=== PATIENT | male | born 1995 | race Caucasian/White ===

== ENCOUNTER 2020-03-15 17:25 | Emergency (ER) | payer BC, SELFPAY ==
[2020-03-15 17:40] VITALS: BP 150/76; PULSE 105; RESP 20; TEMP 36.6; O2SAT 99
--- NOTE | 2020-03-15 17:43 | ED.GENADULT ---
HPI - General Adult General Chief complaint: Skin/Abscess/Foreign Body Stated complaint: Skin/Foreign Abcess Time Seen by Provider: 03/15/20 17:43 Source: patient Mode of arrival: ambulatory Limitations: no limitations History of Present Illness HPI narrative: 24-year-old male patient presents to the [facility] with complaints of wound to the left side of the neck for the past week. Patient states it started off as a small pimple and has gotten increasingly bigger, tender and feels like there is a lot of pressure to it. Patient denies any fevers, body aches or chills that he is aware of. Patient states he did try to pop it and squeeze it however it has gotten worse. Related Data Allergies Allergy/AdvReac Type Severity Reaction Status Date / Time amoxicillin Allergy Unknown Unknown Verified 03/15/20 17:56 Review of Systems Review of Systems: Narrative: CONSTITUTIONAL: Denies fever, chills, or sweats. EYES: Denies visual changes, redness, or discharge. ENT: Denies rhinorrhea, congestion, sore throat, or otalgia. CARDIOVASCULAR: Denies chest pain, palpitations, or edema. RESPIRATORY: Denies cough or dyspnea. GASTROINTESTINAL: Denies abdominal pain, nausea, vomiting, or diarrhea. GENITOURINARY: Denies dysuria or hematuria. SKIN: Denies rash or itching. Positive wound to left side of neck x1 week MUSCULOSKELETAL: Denies back pain, joint pain, or myalgia. NEUROLOGIC: Denies headache, numbness, or weakness. PSYCHIATRIC: Denies anxiety or depression. PMFSH Comments At the time of my signature I agree with nursing past medical history, surgical, social, and family history. There is no relevant family history pertinent to the presenting complaint. Exam Narrative: Exam Narrative: GENERAL: Well-appearing, well-nourished, and in no acute distress. HEAD: Normocephalic, atraumatic. EYES: PERRLA and EOMI. ENT: Nares clear, no rhinorrhea or epistaxis. Mucous membranes moist. NECK: Supple. No lymphadenopathy CHEST: Clear to auscultation. No respiratory distress. HEART: Regular rate and rhythm. No murmur heard. Normal peripheral pulses. ABDOMEN: Soft, nontender, nondistended, normal active bowel sounds. EXTREMITIES: Normal range of motion. No edema. SKIN: Warm, dry, no rash. Patient has a 4 cm x 3 cm raised abscess to the lateral left side of the neck. There does appear to be a center pimple-like area. No active drainage at this time. Is very sensitive to the touch and with some erythema but no warmth noted. NEURO: No focal deficits. Alert and oriented x3. Course Vital Signs Vital signs: Vital Signs Temperature 36.6 C 03/15/20 17:40 Pulse Rate 105 H 03/15/20 17:40 Respiratory Rate 20 03/15/20 17:40 Blood Pressure 150/76 H 03/15/20 17:40 Pulse Oximetry 99 03/15/20 17:40 Temperature 36.6 C 03/15/20 17:52 Pulse Rate 105 H 03/15/20 17:52 Respiratory Rate 20 03/15/20 17:52 Blood Pressure 150/76 H 03/15/20 17:52 Pulse Oximetry 99 03/15/20 17:52 Vital signs reviewed. Procedures Abscess I/D neck: Date of Incision: 03/15/20 Time of Incision: 17:55 Side (if applicable): left Sedation/analgesia: none Local Anesthetic: lidocaine 1% Amount of anesthesia used (mL): 2 Technique: incised with #11 blade Irrigation: Yes Packing used?: iodoform I&D Results: Pus and Blood Abcess I&D Additional Comments: The procedure was explained and verbal consent is obtained. The wound was anesthetized with 2ml of 1% lidocaine with good anesthesia. Sterile drape and prep are done. The fluctuant center was incised with #11 blade scalpel. A moderate amount of excudate/blood was expressed or removed. The wound was probed for loculated area and irrigated with normal saline. Wound was packed with iodoform. Dressing was applied. The patient tolerated the procedure well. Medical Decision Making Differential Diagnosis Differential Diagnosis: Differential diagnosis: Absc
[2020-03-15 17:52] VITALS: BP 150/76; PULSE 105; RESP 20; TEMP 36.6; O2SAT 99
== END 2020-03-15 18:05 | disposition home or self-care (01) ==
PROVIDERS: Emergency Provider Nurse Practitioner Family
DX: L02.11 Cutaneous abscess of neck (principal)
CPT/HCPCS: 10061; 87070; 87205; 99203; G0463

== ENCOUNTER 2025-02-13 17:54 | Emergency (ER) | payer OTHER, SELFPAY ==
--- OUTSIDE RECORDS SUMMARY | 2025-02-13 17:55 | XMS_ITS | Clinical Summary ---
Author Organization [facility] Address [address] [place] [address] Phone Care Team Providers Care Agricultural Sales Representative Name Role Phone Provider, None Primary Care Provider Unavailabl e Allergies Active Allergy Reactions Criticality Noted Date Comments Amoxicillin Unknown 02/04/2024 Medications No known medications Social History Tobacco Use Types Packs/Day Years Used Date Smoking Tobacco: Never Smokeless Tobacco: Never Tobacco Cessation:Counseling Given: Not Answered Sex and Gender Information Value Date Recorded Sex Assigned at Not on file Legal Sex Male 11:09 PM CDT Gender Identity Not on file Sexual Orientation Not on file Last Filed Vital Signs Vital Sign Reading Time Taken Comments Blood Pressure 137/77 02/04/2024 8:58 PM CDT Pulse 102 02/04/2024 8:58 PM CDT Temperature 37.4 C (99.3 F) 02/04/2024 8:58 PM CDT Respiratory Rate 17 02/04/2024 8:58 PM CDT Oxygen Saturation 100% 02/04/2024 8:58 PM CDT Inhaled Oxygen Concentration - - Weight 76.2 kg (167 lb 15.9 oz) 02/04/2024 8:58 PM CDT Height 172.7 cm (5' 8) 02/04/2024 8:58 PM CDT Body Mass Index 25.54 02/04/2024 8:58 PM CDT Plan of Treatment Not on file Insurance MEDICAID [place] Care Teams Agricultural Sales Representative Relationship Specialty Start Date End Date Provider, None [place] PCP - General 02/04/24
--- OUTSIDE RECORDS SUMMARY | 2025-02-13 17:55 | XMS_ITS | Clinical Summary ---
Author Organization [facility] Address [address] [place] [address] Care Team Providers Care Mercury Washer Name Role Phone Anuel Quinn MD Primary Care Provi barbra Allergies Active Allergy Reactions Criticality Noted Date Comments Amoxicillin Other (See comments) Low Childhood allergy per pt, unsure of reaction Medications albuterol HFA (PROVENTIL HFA,VENTOLIN HFA,PROAIR HFA) 90 mcg/actuation inhalerIndicati ons:Wheezing Inhale 2 puffs every 6 (six) hours as needed for wheezing 3 each 4 04/20/2023 Active ARIPiprazole (ABILIFY) 10 mg tabletIndicatio ns:Bipolar affective disorder, currently depressed, moderate (HCC) Take 1 tablet (10 mg total) by mouth daily 30 tablet 1 09/07/2024 Active Active Problems Problem Noted Date Diagnosed Date Bipolar affective disorder, currently depressed, moderate 06/29/2024 Assessment & Plan (09/07/2024 5:01 PM CDT): Orders: ARIPiprazole (ABILIFY) 10 mg tablet; Take 1 tablet (10 mg total) by mouth daily Ambulatory referral to Psychology; Future Auditory hallucinations 06/29/2024 Hypoglycemia 06/29/2024 Dysphoric mood 04/20/2023 Assessment & Plan (04/20/2023 10:38 AM SPOUT WORKER): Patient has complex stressful financial, legal and family issues, declines thoughts of self-harm. Has been on zoloft in the past but did not like how he felt. Has tried counseling in the past and is interested in starting again. Provided list of counseling services. Instructed to call back if doesn't find good fit. He is not interested in psychiatry referral at this time. Overall, coping well. Instructed to call if further concerns. Food pantry list provided for additional resources Encounter for PPD skin test reading 06/15/2021 Immunizations Immunization Administration Dates Next Due DTaP 11/30/2001, 9,05/31/1998,03/29,01/25/1998 HPV, Quadrivalent 08/25/2014,10/06/2012 HPV9 11/28/2015 Hep A, Ped Unspecified 05/15/2007,11/27/2006 Hep B / HiB 05/31/1998 Hep B, Unspecified 1997,1997 HiB 02/28/1999,03/29/1998,01/25/1998 IPV 11/30/2001, 9,03/29/1998,01/25 Influenza LAIV (Nasal) 02/22/2011 Influenza, Live, Trivalent, Intranasal 1 Influenza, Quadrivalent, Spl it, Preservative Free, Intramuscular 04/20/2023 Influenza, Unspecified 01/21/2024(Deferr ed: Patient Refused),04/20/2023,01/19/2023(Deferre d: Patient Refused) MMR 11/30/2001,1998 Meningococcal ACWY, Unspecified 11/14/2009 Meningococcal Conjugate (Menveo) 08/25/2014 PPD TEST 06/12/2021 Pneumococcal Conjugate 7-Valent 02/26/2001 Tdap 11/12/2018,01/09/2009 Varicella 11/30/2007,1998 Surgical History Surgery Date Site/Laterality Comments TONSILLECTOMY Bilateral Medical History Medical History Date Comments No pertinent past medical history Family History Medical History Relation Name Comments Liver disease Maternal Grandmother liver varices Maternal Grandmother Diabetes Mother Colon cancer Other Paternal aunt Uterine cancer Other Paternal aunt pulmonary hypertension Other Paternal aunt Diabetes Paternal Grandmother Heart disease Paternal Grandmother pacemaker Paternal Grandmother Relation Name Status Comments Maternal Grandmother Mother Other Paternal aunt Paternal Grandmother Social History Tobacco Use Types Packs/Day Years Used Date Smoking Tobacco: Every Day Cigarettes 1 1.8 Started: 2023; Last attempted to quit: 12/28/2022 Vaping Smokeless Tobacco: Never AUDIT-C Answer Date Recorded Q1: How often do you have a drink containing alcohol? Never 04/20/2023 Q2: How many drinks containi ng alcohol do you have on a typical day when you are drinking? Patient does not drink Q3: How often do you have si x or more drinks on one occasion? Never 04/20/2023 PHQ-2 Answer Date Recorded PHQ-2 Total Score (If total score is 3 or more points, staff should administer the PHQ-9) 0 06/29/2024 Personal Safety Answer Date Recorded Have you ever been in or are you currently in a harmful physical or emotional relationship or is someone making you feel afraid or unsafe? Denies 06/28/2024 Sex and Gender Information Value Date Recorded Sex Assigned at Not on file Legal Sex Male 3:25 AM SPOUT WORKER Gender Identity Not on file Sexual Orientation Not on file Last Filed Vital Signs Vital Sign Reading Time Taken Comments Blood Pressure 108/58 09/07/2024 4:23 PM CDT Pulse 92 09/07/2024 4:23 PM CDT Temperature 36.8 C (98.2 F) 09/07/2024 4:23 PM CDT Respiratory Rate 18 06/28/2024 4:46 PM CDT Oxygen Saturation 98% 09/07/2024 4:23 PM CDT Inhaled Oxygen Concentration - - Weight 79.2 kg (174 lb 8 oz) 09/07/2024 4:23 PM CDT Height 172.7 cm (5' 7.99) 09/07/2024 4:23 PM CD T Body Mass Index 26.54 09/07/2024 4:23 PM CDT Plan of Treatment Health Maintenance Due Date Last Done Comments Hepatitis C Screening 1997 Pneumococcal vaccine <65 (2 of 2 - PPSV23, PCV20, or PCV21) 11/30/2003 02/26/2001 Regular Well Visit/Exam 18-64 11/30/2015 Influenza Vaccine (#1) 2024 , 04/20/2023, 02/22/2011, Additional history exists Depression Screening 06/29/2025 06/29/2024, 04/20/19 24 DTaP/Tdap/Td Vaccine (8 - Td or Tdap) 11/12/2028 11/12/2018, 01/09/2009, 11/30/2001, Additional history exists Hepatitis B Screening Completed 05/31/1998 , 1997, 1997 Varicella Vaccines Completed 11/30/2007, 1998 HPV Vaccines Completed 11/28/2015, 08/11, 10/06/2012 Covid-19 Vaccine Completed 12/12/2023, , 01/15/2021, Additional history exists Insurance [facility] H[facility]/PPO Address: [facility] [id number] [place] [id number] [facility] [address] [place] [address] Care Teams Mercury Washer Relationship Specialty Start Date End Date Anuel Quinn MD [address] [facility] [address] [place] [address] PCP - General Family Practice 06/29/24
[2025-02-13 17:58] VITALS: BP 124/68; PULSE 77; RESP 18; TEMP 37.2; O2SAT 100
--- NOTE | 2025-02-13 18:35 | ED_ITS ---
HPI - Ear Problem General Chief complaint: Ear Stated complaint: cotton stuck in L ear Time Seen by Provider: 02/13/25 18:35 Source: patient, RN notes reviewed and old records reviewed Mode of arrival: ambulatory Limitations: no limitations History of Present Illness HPI Narrative: 29-year-old male presents to the [facility] with cotton stuck in his left ear. Lost a Q-tip just prior to arrival. Related Data Allergies Allergy/AdvReac Type Severity Reaction Status Date / Time amoxicillin Allergy Unknown Unknown Verified 02/13/25 18:07 Review of Systems Review of Systems: All systems reviewed & are unremarkable except as noted in HPI and below Constitutional: Constitutional: Reports no additional constitutional complaints ENT: Reports as per HPI Cardiovascular: Cardiovascular: Reports no additional cardiovascular complaints, Denies chest pain and Denies dyspnea Respiratory: Respiratory: Reports no additional respiratory complaints, Denies chest congestion, Denies cough and Denies dyspnea Musculoskeletal: Musculoskeletal: Reports no additional musculoskeletal complaints Integumentary/Breasts: Skin/Breast: Reports system reviewed and no additional complaints, except as docu PMFSH Comments At the time of my signature, I reviewed and agree with the nursing past medical, surgical, social, and family history. There is no relevant family history pertinent to the patient complaint. Exam Const: General: cooperative, healthy appearing, comfortable, no acute distress, well developed, alert and well nourished Nutritional Appearance: well nourished Orientation/consciousness: patient oriented x3 Limitations: no limitations HENMT: Head: normal to inspection Ears: external ears normal, mastoids normal, no periauricular adenopathy and Abnormal EAC present foreign body on the left Throat: posterior oropharynx normal, uvula midline and no uvular edema Eyes: General: appearance normal, both eyes and all related structures Alignment and Position: alignment normal Neck: Neck: normal visual inspection, full ROM, no lymphadenopathy and no meningeal signs Chest: Chest palpation & inspection: normal inspection of the chest Resp: Effort & Inspection: normal respiratory effort and able to speak in complete sentences Auscultation: clear to auscultation bilaterally, no crackles, no rales, no rhonchi and no wheezes Cardio: Rate: regular rate Skin: General skin exam: normal color and no rashes or lesions noted Neuro: General: patient oriented x3, gait normal, moves all extremities and no meningeal signs Cognition (Neuro): normal cognition Speech: normal speech Gait exam (Neuro): Normal gait present Extrem: General: normal to inspection, full ROM, capillary refill normal and normal gait Psych: Appearance: grossly normal and well kempt Mental Status: mental status grossly normal Speech and movement: Normal speech and movement present and Clear speech present Affect: normal affect Attitude: cooperative Course Course Level of Care: Express Care Visit Vital Signs Vital signs: Vital Signs Temperature 98.9 F 02/13/25 17:58 Pulse Rate 77 02/13/25 17:58 Respiratory Rate 18 02/13/25 17:58 Blood Pressure 124/68 02/13/25 17:58 Pulse Oximetry 100 02/13/25 17:58 Oxygen Delivery Room Air 02/13/25 17:58 Temperature 98.9 F 02/13/25 17:58 Pulse Rate 77 02/13/25 17:58 Respiratory Rate 18 02/13/25 17:58 Blood Pressure 124/68 02/13/25 17:58 Pulse Oximetry 100 02/13/25 17:58 Oxygen Delivery Room Air 02/13/25 17:58 Reviewed Procedures FB Removal Ear Foreign Body #1: Foreign Body Removal Date: 02/13/25 Foreign Body Removal Time: 18:46 Location: ear canal (L) Foreign Body Suspected: other ( cotton) TM intact pre-procedure: unable to visualize Foreign Body Removed: yes Foreign Body Removal Technique: irrigation Tympanic Membrane Intact Post Procedure: Yes Patient Tolerated Procedure: well Additional Comments: Procedure explained, verbal consent obtained. Irrigated left ear with peroxide and saline. Cotton visualized at the opening of the ear canal, used the curette to fully remove. Patient tolerated procedure well. TM intact. No erythema or edema noted Medical Decision Making MDM Narrative Medical decision making narrative: Patient sitting comfortably in exam room. Nontoxic, vitals stable. Patient in no acute distress Patient presents for removal of a Q-tip Q-tips successfully removed without issue Patient is appropriate for outpatient treatment with follow-up Discharge instructions reviewed with patient, as well as provided in writing per nursing staff. The instructions also include specific and strict return/GO TO THE ER as well as f/u information. All questions have been answered, and the patient deny any further questions with discharge and discharge plan. Some parts of this dictation were generated by voice recognition software and may contain typographical and/or grammatical inaccuracies. Differential Diagnosis Differential Diagnosis: Foreign body ear Medical Records Medical records reviewed: Yes I reviewed the external patient's medical records. Vital Signs Vital Signs: Vital Signs Temperature 98.9 F 02/13/25 17:58 Pulse Rate 77 02/13/25 17:58 Respiratory Rate 18 02/13/25 17:58 Blood Pressure 124/68 02/13/25 17:58 Pulse Oximetry 100 02/13/25 17:58 Oxygen Delivery Room Air 02/13/25 17:58 Temperature 98.9 F 02/13/25 17:58 Pulse Rate 77 02/13/25 17:58 Respiratory Rate 18 02/13/25 17:58 Blood Pressure 124/68 02/13/25 17:58 Pulse Oximetry 100 02/13/25 17:58 Oxygen Delivery Room Air 02/13/25 17:58 Reviewed Lab Data Lab results reviewed: Yes I reviewed the patient's lab results. Labs: Reviewed Critical Care Time Critical Care Time Critical Care Time: No Discharge Plan Discharge Clinical Impression: Acute foreign body of left ear Patient Disposition: Home Condition: Stable Instructions: Antibiotic Form, Ear Foreign Body (ED) Additional Instructions: take Motrin alternating with Tylenol as needed for pain. Do not put anything in your ear. Especially not Q-tips follow-up with primary care provider Patient Language: Beninese Prescriptions: No Action clindamycin HCl 300 mg capsule 300 mg PO Q8H 7 Days Qty: 21 0RF Follow-up/Referrals: UNKNOWN,DOCTOR [Primary Care Provider] Time of Disposition: 18:51
== END 2025-02-13 19:04 | disposition home or self-care (01) ==
PROVIDERS: Emergency Provider Nurse Practitioner
DX: T16.2XXA Foreign body in left ear, initial encounter (principal); W44.8XXA Other foreign body entering into or through a natural orifice, initial encounter
CPT/HCPCS: 69200; 99212; A9270; G0463